=== PATIENT | female | born 1970 | race Caucasian/White ===

== ENCOUNTER → 2016-11-18 | Outpatient (CLI) | payer BC ==
[~2016-11-18] MED LIST: ACETAMINOPHEN325 MG PO; ACETAMINOPHEN650 M1 PO; ADVIL200 M1; BYSTOLIC5 MG PO; HYDROCODON-ACE1 EAC7 PO; KEFLEX500 MG PO; PHENERGAN25 M1 DOB; ZESTORETIC 20-1 EAC1 PO
--- NOTE | ~2016-11-18 | EKG ---
PATIENT: KAYKAY ESTEVES UNIT #: [id number] Ventricular Rate: 67 BPM Atrial Rate: 67 BPM P-R Interval: 180 ms QRS Duration: 86 ms Q-T Interval: 432 ms QTC Calculation(Bezet): 456 ms P [place]: 66 degrees Calculated R [place]: 55 degrees Calculated T [place]: 44 degrees Diagnosis Line: Normal sinus rhythm Diagnosis Line: Normal ECG Diagnosis Line: Diagnosis Line: Confirmed by NATHANAEL RAMON MD ([id number]) on 11/18/2016 Diagnosis Line: 10:20:33 PM INTERPRETING MD: YENNY MCKNIGHT
[2016-11-18 09:45] LABS: HEMATOCRIT 39.6 % (35.0-45.0); HEMOGLOBIN 13.4 gm/dL (12.0-16.0); MEAN CELL VOLUME 85.3 FL (83-96); MEAN CORPUSCULAR HEMOGLOBIN 28.8 PG (28-34); MEAN CORPUSCULAR HGB CONC 33.7 g/dL (30-36); MEAN PLATELET VOLUME 8.9 FL (6.5-11.5); RED BLOOD COUNT 4.64 X10e (3.90-5.30); RED CELL DISTRIBUTION WIDTH 14.7 % (11.0-15.5)
[2016-11-18 10:42] LABS: CALCIUM SERUM 8.7 mg/dL (8.4-10.2); CREATININE SERUM 1.1 mg/dL (0.6-1.4); GLOM FILT RATE Estimated 60.6 mL/min (>60); POTASSIUM 3.6 mmol/L (3.5-5.1)
== END | disposition home or self-care (01) ==
LOC: CAMB 07:30
PROVIDERS: Surgery
DX: Z01.818 Encounter for other preprocedural examination (principal)
CPT/HCPCS: 36415; 80048; 85027; 93005

== ENCOUNTER 2016-11-20 07:05 | Observation (INO) | payer BC ==
--- NOTE | ~2016-11-20 | CO ---
Unit #: [id number] #: [id number] Patient: KAYKAY ESTEVES [id number] [address] [place], [place] [address] [id number] I MR#: [id number] NAME: KAYKAY ESTEVES. ROOM: 461 Age: 45 Sex: F Admission Date: 11/20/2016 : 1970 Attending Physician: Ted Cunha M.D. 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 Ki 67 is 70%. Came for mastectomy. Some nonspecific lesions in the lung. MS. HISTORY OF PRESENT ILLNESS The patient is a 45-year-old female who has multiple sclerosis. At present, she is off treatment. About two months ago, she noticed a left breast mass, it gradually worsening. Finally, patient had a mammogram and ultrasound. It showed a 7 cm mass in the left breast. The patient had a core biopsy on 10/28/2016. It confirmed high-grade metaplastic adenocarcinoma, ERP, HER2/madi all three negative present. I talked to pathology, Dr. Walt Garcia at [facility]. The patient had a PET scan. It confirmed the left breast mass. It is about 7 cm. I spoke to the radiologist. There are some nonspecific lesions in the lung, it appears to be benign. The patient came to the hospital, had the mastectomy, tolerated, now wants to go home. Please note, the patient was not interested in neoadjuvant chemotherapy. REVIEW OF SYSTEMS CONSTITUTIONAL: No fever, no chills, no sweats, no weight loss. EYES: No visual symptoms. EARS, NOSE AND THROAT: There is no runny nose or sore throat or difficulty hearing. CARDIOVASCULAR: No chest pain. No shortness of breath. No palpitations. No orthopnea. No PND. RESPIRATORY: No cough. No wheezing. No hemoptysis. GASTROINTESTINAL: No nausea, vomiting, diarrhea, constipation, hematochezia or melena. GENITOURINARY: No urinary frequency, hesitancy or urgency. No blood in the urine. MUSCULOSKELETAL: No muscle or joint pain. NEUROLOGIC: No headache. No numbness or tingling. No weakness. No seizure. PSYCHIATRIC: No anxiety, depression or mood disturbance. ENDOCRINE: No excessive urination or thirst. DERMATOLOGIC: No rash or change in the skin. Unit #: [id number] #: [id number] Patient: KAYKAY ESTEVES ALLERGIC/IMMUNOLOGIC: No symptoms. HEMATOLOGIC/LYMPHATIC: Denies any symptoms. PAST MEDICAL HISTORY 1. Newly diagnosed breast cancer. 2. Multiple sclerosis. 3. Hypertension. PAST SURGICAL HISTORY 1. Ablation for SVT. 2. Now left breast mastectomy. ALLERGIES No known drug allergies. SOCIAL HISTORY Smoked one pack per day for 5 years, quit many years ago. Used to work in a [employer]. FAMILY HISTORY Negative for cancer. PHYSICAL EXAMINATION GENERAL: Patient is comfortable. ECOG is 0. The patient is pleasant. VITAL SIGNS: Afebrile. O2 saturation 98% on room air. Pulse 56, blood pressure 121/50, respirations 16. O2 saturation again 100%. HEENT: Moist mucosa. Pupils equally reactive to light. Extraocular muscles intact. Sclerae anicteric. No obvious bleeding from nasal mucosa or oral mucosa. Scalp normal. Hearing normal. NECK: No JVD. No lymphadenopathy. LYMPHATIC/HEMATOLOGIC: There is no palpable adenopathy in the neck, axilla or inguinal area. CARDIOVASCULAR: S1, S2. Regular rate and rhythm. No S3 or S4. RESPIRATORY: Chest symmetrical, normal. Clear to auscultation bilaterally. No wheezes, no rales, no rhonchi. No dullness to percussion. ABDOMEN/GASTROINTESTINAL: Abdomen is soft, nontender, nondistended. No hepatosplenomegaly. EXTREMITIES: There is no clubbing, no cyanosis, no edema. No varicose veins. NEUROLOGICAL: Patient is alert, awake and oriented x3. Cranial nerves II-XII are intact. Sensory grossly intact. Motor is 4/5 in all four extremities. Gait is normal. Station is normal. Language is normal. Memory is normal. DTRs +2 in all four extremities. MUSCULOSKELETAL: No joint swelling. No bony tenderness. No muscle tenderness. SKIN: No petechiae, no rash, no ecchymosis. PSYCHIATRIC: No anxiety. No delusions or hallucinations. There is no agitation. Eye contact is normal. Affect is appropriate. There is no flight of ideas. DIAGNOSTIC STUDIES LABORATORY: Creatinine 1.2, LFTs normal. WBC 11.2, hemoglobin 12.0, platelets 346. 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 The mass is measuring about 7 cm. PET scan confirmed the mass and the lesion in the lung are nonspecific. Unit #: [id number] #: [id number] Patient: KAYKAY ESTEVES DISCUSSION Extensive discussion with new patient. Patient, , and daughter they refused neoadjuvant chemotherapy. Patient has a mastectomy that she tolerated. PLAN I will follow the patient as an outpatient. She needs adjuvant chemotherapy. We will discuss the pathology report with our pathologist. She also needs genetic counseling and testing. We will also have to monitor her nonspecific lung nodule. Dictated by... Tien Kirkpatrick TD: 11/21/2016 18:26 JOB #: [id number] CONSULTATION REPORT Page 1 of 1 X Lashawn Gutierres MD X CONSULTATION REPORT
--- NOTE | ~2016-11-20 | NM79 ---
[facility] A Service [facility] RADIOLOGY TEXT RESULTS PATIENT: KAYKAY ESTEVES LOCATION: [place] [address] : [birth year] UNIT #: [id number] AGE: [address]: Ted Cunha MD SEX: F ORDER DR: [id number] [address] [place], [place] [address] [id number] O MR#: [id number] Acc #: [id number] NAME: KAYKAY ESTEVES : 1970 SEX: F STUDY DATE/TIME: 11/20/2016 8:15 UNIT: CS ROOM: STUDY DESCRIPTION: NM [place] Node Inj Attending Physician: Ted Cunha M.D. Ordering Physician: Ted Cunha M.D. Primary Care Physician: Primary Care Physician No MEDICAL IMAGING REPORT This report is preliminary unless electronic signature is present EXAM Left breast sentinel node injection 11/20/2016 INDICATION 45-year-old female with biopsy-proven malignancy in the upper outer quadrant left breast. Scheduled for mastectomy and sentinel node dissection. FINDINGS The patient's prior imaging studies were reviewed. She was deemed adequate candidate for the procedure. History and physical in the patient's chart was reviewed. Procedure and risks were explained to the patient. These included but not limited to bleeding, infection, and damage to adjacent structures. The patient gave consent to proceed. Prior to the procedure, a "time-out" protocol was also followed to confirm patient identity and procedure details. The nipple areolar complex in the left breast was prepped with an alcohol pad x3. Thereafter, using a periareolar approach, 3 separate injections were performed from the 12 o'clock to the 3 o'clock positions with a total injection of 585 McCi Tc99m filtered sulfur colloid. There were no immediate post procedure complications. The patient tolerated the procedure well. IMPRESSION Successful sentinel node injection on the left. No immediate post procedure complications. Dictated by... Reggie Slater M.D. [facility] A Service [facility] RADIOLOGY TEXT RESULTS PATIENT: KAYKAY ESTEVES LOCATION: [place] [address] : [birth year] UNIT #: [id number] AGE: [address]: Ted Cunha MD SEX: F ORDER DR: THIS IS AN ELECTRONICALLY VERIFIED REPORT Reggie Slater M.D. at 11/20/2016 5:11 PM Zohaib TD: 11/20/2016 09:35 JOB #: [id number] MEDICAL IMAGING REPORT Page 1 of 1 COPY
--- NOTE | ~2016-11-20 | OR ---
Unit #: [id number] #: [id number] Patient: KAYKAY ESTEVES [id number] [address] [address] [id number] I MR#: [id number] NAME: KAYKAY ESTEVES ROOM: 461 Date of Procedure: 11/20/2016 Admission Date: 11/20/2016 Surgeon: Ted Cunha M.D. : 1970 Attending Physician: Ted Cunha M.D. OPERATIVE REPORT PREOPERATIVE DIAGNOSIS Carcinoma, left breast upper outer quadrant. POSTOPERATIVE DIAGNOSIS Carcinoma, left breast upper outer quadrant. PROCEDURES PERFORMED 1. Left mastectomy. 2. Left axillary sentinel lymph node biopsy. PILOT TEACHER Kinza Vilchis, certified wellness program coordinator. ANESTHESIA General LMA anesthesia. FINDINGS The patient had a large nodes present in the left axilla; however, on frozen section, it was benign. Additional deep margin of pectoralis major muscle was taken. FLUIDS 1500 mL of crystalloid. ESTIMATED BLOOD LOSS Minimal. DRAINS Polo-Hernández 10 mm x2. TUBES None. SPECIMEN Sent to pathology. COMPLICATIONS None apparent. CONDITION The patient tolerated the procedure well. Unit #: [id number] #: [id number] Patient: KAYKAY ESTEVES INDICATIONS FOR PROCEDURE The patient is a 45-year-old female, who recently was found to have a 7 cm mass in the left breast. A PET scan revealed no other disease present. The patient was presented with several options, but wishes to proceed with left mastectomy at this time with left axillary sentinel lymph node biopsy. DESCRIPTION OF PROCEDURE After obtaining informed consent as well as receiving preoperative antibiotics, the patient who earlier in the day underwent injection beneath the left nipple-areolar complex with radioactive sulfur colloid. She was brought to the operating room and after adequate general LMA anesthesia was obtained, had her left breast, axilla, and chest prepped and draped in a sterile fashion. SCDs were in place. Prior to prep and drape, the patient had sterile injection of Lymphazurin blue beneath the left nipple-areolar complex and it was massaged for 5 minutes by the clock. At this point in time, using the Neoprobe as a guide, the area of increased uptake in the left axilla was marked. An elliptical incision was made around the nipple-areolar complex high enough and low enough to be above and below the area of the 7 cm mass. It was taken down through the skin with a knife and through the subdermal tissues and subcutaneous tissues with electrocautery. The superior flap was raised to the level of the pectoralis major muscle just below the level of the clavicle. An inferior flap was raised to the level of the lower chest wall. As dissection was taken across the upper flap towards the left axilla, the Neoprobe was used as a guide to go to be led down to an area of increased uptake. This revealed a large blue lymph node. This was sent to pathology for frozen section that was benign. After this node was removed, all radioactive counts in the axilla were essentially zero. The breast was removed from medial to lateral, but taking the pectoralis major muscle with good hemostasis using electrocautery, micro-clips, and with 3-0 suture ligatures. Because the 7 cm mass appeared to be close to the deep margin of the pectoralis major fascia, an 8 x 8 cm area of the additional deep margin was taken underneath the area of the mass. This was performed with electrocautery with good hemostasis and sent to pathology. The wound was copiously irrigated. Good hemostasis was confirmed in all areas of dissection. The two separate stab incisions were made inferiorly and a 10 flat Polo-Hernández drain was placed over the pectoralis major muscle as well as another one placed in the left axilla. Each was secured with a 2-0 silk sutures. A loop of 4-0 chromic was placed around the pectoralis major drain, so they would not migrate. This was loose. The subdermal tissues and subcutaneous tissues were reapproximated with a running 3-0 Vicryl suture. The skin was closed with a 4-0 Vicryl subcuticular stitch. Benzoin and Steri-Strips were applied over the wound in an occlusive manner followed by fluffs, a Kerlix wrap, and an Yuri wrap. Needle counts, sponge counts, and instrument counts were all correct as reported by the scrub nurse x2. The patient went from the operative room to the recovery room in stable condition. Dictated by... Tien Degroot/dougie TD: 11/21/2016 01:32 JOB #: [id number] CC: [facility] Unit #: [id number] #: [id number] Patient: KAYKAY ESTEVES M.D. Lydia C. Samples, M.D. OPERATIVE REPORT Page 1 of 1 X Ted Cunha MD X PROCEDURE OPERATIVE NOTE
[~2016-11-20 07:05] MED LIST changes: -ACETAMINOPHEN325 MG PO; -ACETAMINOPHEN650 M1 PO; -HYDROCODON-ACE1 EAC7 PO; -KEFLEX500 MG PO; -PHENERGAN25 M1 DOB
[2016-11-21 03:23] LABS: BASOPHIL# 0.1 X10e3 (0-0.3); BASOPHIL% 1.1 % (0-2.5); HEMATOCRIT 36.2 % (35.0-45.0); LYMPHOCYTE# 1.1 X10e3 (1.0-3.5); LYMPHOCYTE% 9.5 % (17.0-45.0); MEAN CORPUSCULAR HEMOGLOBIN 28.6 PG (28-34); MEAN CORPUSCULAR HGB CONC 33.2 g/dL (30-36); MEAN PLATELET VOLUME 9.1 FL (6.5-11.5); MONOCYTE# 0.5 X10e3 (0-1.0); MONOCYTE% 4.5 % (3.0-12.0); NEUTROPHIL# 9.5 X10e3 (1.5-7.1); NEUTROPHIL% 84.9 % (40-75); PLATELET COUNT 346 X10e3 (140-420); RED BLOOD COUNT 4.21 X10e (3.90-5.30); RED CELL DISTRIBUTION WIDTH 14.7 % (11.0-15.5); WHITE BLOOD COUNT 11.2 X10e3 (4.0-10.5)
[2016-11-21 03:25] LABS: DIFF IND NO
[2016-11-21 03:54] LABS: BUN/CREATININE RATIO 8.33; CALCIUM SERUM 8.2 mg/dL (8.4-10.2); CREATININE SERUM 1.2 mg/dL (0.6-1.4); GLOM FILT RATE Estimated 54.5 mL/min (>60); POTASSIUM 3.7 mmol/L (3.5-5.1)
[2016-11-21] MEDS ORDERED: PHENERGAN25 M1 DOB (10:22)
[2016-11-21] MEDS ORDERED: KEFLEX500 MG PO (10:22)
[2016-11-21] MEDS ORDERED: HYDROCODON-ACE1 EAC7 PO (10:24)
[2016-11-21] MEDS ORDERED: ACETAMINOPHEN325 MG PO (10:25)
[2016-11-21] MEDS ORDERED: ACETAMINOPHEN650 M1 PO (10:26)
== END 2016-11-21 11:35 | disposition home or self-care (01) | DRG 599 ==
LOC: CSUR 07:05 → CPACUOF 12:00 → C4C 14:47
PROVIDERS: Surgery
DX: C50.412 Malignant neoplasm of upper-outer quadrant of left female breast (principal); Z17.1 Estrogen receptor negative status [ER-]; I10 Essential (primary) hypertension; G35 Multiple sclerosis; Z87.891 Personal history of nicotine dependence; E66.9 Obesity, unspecified
CPT/HCPCS: 80048; 82947; 84703; 85025; 88305; 88307; 88312; 88331; 96374; 96376; A9541; G0378; J0131; J0690; J1100; J1170; J2250; J2405; J3010; Q9968

== ENCOUNTER → 2016-12-10 | Outpatient (CLI) | payer BC ==
[~2016-12-10] MED LIST changes: +ACETAMINOPHEN325 MG PO; +ACETAMINOPHEN650 M1 PO; +HYDROCODON-ACE1 EAC7 PO; +KEFLEX500 MG PO; +PHENERGAN25 M1 DOB
== END | disposition home or self-care (01) ==
LOC: CECH 09:30
DX: C50.312 Malignant neoplasm of lower-inner quadrant of left female breast (principal)
CPT/HCPCS: 93306

== ENCOUNTER → 2016-12-11 | Outpatient (CLI) | payer BC ==
--- NOTE | ~2016-12-11 | XA91 ---
[facility] A Service of [facility] & [facility] RADIOLOGY TEXT RESULTS PATIENT: KAYKAY ESTEVES LOCATION: [facility] : [birth year] UNIT #: [id number] AGE: [address]: Lashawn Gutierres MD SEX: F ORDER DR: [id number] [facility] [address] [place], [place] [address] [id number] O MR#: [id number] Acc #: [id number] NAME: KAYKAY ESTEVES : 1970 SEX: F STUDY DATE/TIME: 12/11/2016 9:08 UNIT: CIVR ROOM: STUDY DESCRIPTION: XA CVC Tunneled W Port Attending Physician: Lashawn Gutierres M.D. Ordering Physician: Lashawn Gutierres M.D. Primary Care Physician: Milagros Nunez M.D. MEDICAL IMAGING REPORT This report is preliminary unless electronic signature is present EXAM Port-A-Cath insertion, 12/11/2016. CLINICAL HISTORY Breast cancer. Wxsxmf-P-Rosh insertion requested for chemotherapy administration. PROCEDURE Informed consent was obtained. Full standard sterile technique was utilized including sterile preparation, barrier draping, and sterile gowns and gloves, as well as caps and mask. Real-time sterile ultrasound guidance was used to guide venous access and confirm patency of the right internal jugular vein. Fentanyl and Versed were administered for IV conscious sedation with hemodynamic monitoring provided by the nursing staff throughout procedure. Total sedation time 45 minutes. The right internal jugular was accessed via standard Seldinger technique after local anesthesia and a peel-away sheath inserted. A pocket was then created over the right upper anterior chest, following local anesthesia using a combination of blunt and sharp dissection. The Port-A-Cath hub was inserted into the pocket and the catheter tunneled to the venotomy site. The catheter was then measured and cut to length and inserted via the peel-away sheath. The pocket was then closed with interrupted deep fascial 3-0 Vicryl suture and running subcuticular 4-0 Monocryl suture. The venotomy site was closed with a deep 3-0 fascial Vicryl suture. N-butyl cyanoacrylate glue was applied to both incisions. The catheter STS. [facility] A Service of [facility] & [facility] RADIOLOGY TEXT RESULTS PATIENT: KAYKAY ESTEVES LOCATION: [facility] : [birth year] UNIT #: [id number] AGE: [address]: Lashawn Gutierres MD SEX: F ORDER DR: was also accessed, blood return confirmed and then was flushed with saline and packed with heparin. Single fluoroscopic spot image was obtained and a single sonographic image was preserved. 0.4 minutes of fluoroscopy was utilized. IMPRESSION Successful ultrasound and fluoroscopically guided placement of a tunneled right IJ Mpeuyi-U-Ikmu catheter without complication. Dictated by... Yair Khan M.D. THIS IS AN ELECTRONICALLY VERIFIED REPORT Yair Khan M.D. at 12/15/2016 10:34 AM URSULA/radha TD: 12/12/2016 13:48 JOB #: [id number] MEDICAL IMAGING REPORT Page 1 of 1 COPY
[2016-12-11 08:18] LABS: BASOPHIL# 0.1 X10e3 (0-0.3); BASOPHIL% 0.7 % (0-2.5); EOSINOPHIL# 0.3 X10e3 (0-0.7); EOSINOPHIL% 2.2 % (0.0-7.0); HEMATOCRIT 38.9 % (35.0-45.0); LYMPHOCYTE% 15.7 % (17.0-45.0); MEAN CELL VOLUME 87.8 FL (83-96); MEAN CORPUSCULAR HEMOGLOBIN 29.3 PG (28-34); MEAN CORPUSCULAR HGB CONC 33.4 g/dL (30-36); MEAN PLATELET VOLUME 8.8 FL (6.5-11.5); MONOCYTE# 0.7 X10e3 (0-1.0); MONOCYTE% 5.6 % (3.0-12.0); NEUTROPHIL# 9.9 X10e3 (1.5-7.1); NEUTROPHIL% 75.8 % (40-75); PLATELET COUNT 392 X10e3 (140-420); RED BLOOD COUNT 4.43 X10e (3.90-5.30); RED CELL DISTRIBUTION WIDTH 15.3 % (11.0-15.5); WHITE BLOOD COUNT 13.1 X10e3 (4.0-10.5)
[2016-12-11 08:19] LABS: DIFF IND NO
[2016-12-11 08:29] LABS: INR 0.9; PROTHROMBIN TIME (PATIENT) 9.8 SECONDS (9.6-11.5)
== END | disposition home or self-care (01) ==
LOC: CIVR 07:33
PROVIDERS: Internal Medicine Hematology
PROC: 05HM33Z Insertion of Infusion Device into Right Internal Jugular Vein, Percutaneous Approach (ICD-10-PCS; principal; 2016-12-11)
DX: Z45.2 Encounter for adjustment and management of vascular access device (principal); C50.312 Malignant neoplasm of lower-inner quadrant of left female breast; Z88.8 Allergy status to other drugs, medicaments and biological substances
CPT/HCPCS: 76937; 77001; 85025; 85610; C1788; C1894; J0690; J1642; J2250; J3010

== ENCOUNTER → 2017-01-21 | Outpatient (CLI) | payer BC | END | disposition home or self-care (01) | LOC: CECH 09:38 | DX: C50.312 Malignant neoplasm of lower-inner quadrant of left female breast (principal); R94.39 Abnormal result of other cardiovascular function study; I10 Essential (primary) hypertension | CPT/HCPCS: 93306 ==

== ENCOUNTER → 2017-02-20 | Outpatient (CLI) | payer BC ==
--- NOTE | ~2017-02-20 | XA77 ---
[facility] A Service of [facility] & [facility] RADIOLOGY TEXT RESULTS PATIENT: KAYKAY ESTEVES LOCATION: [facility]IV[facility] : [birth year] UNIT #: [id number] AGE: [address]: Lashawn Gutierres MD SEX: F ORDER DR: [id number] [facility] [address] [place], [place] [address] [id number] O MR#: [id number] Acc #: [id number] NAME: KAYKAY ESTEVES : 1970 SEX: F STUDY DATE/TIME: 02/20/2017 11:07 [facility] RO[facility]: STUDY DESCRIPTION: XA CVC Port Devive Check Attending Physician: Lashawn Gutierres M.D. Referring Physician: Lashawn Gutierres M.D. Ordering Physician: Lashawn Gutierres M.D. Primary Care Physician: Milagros Nunez M.D. MEDICAL IMAGING REPORT This report is preliminary unless electronic signature is present EXAM Port site check HISTORY Unable to withdraw blood from catheter. PROCEDURE After informed consent was obtained, the catheter was accessed in standard sterile fashion. Initial attempts to aspirate fluid were unsuccessful. After it was flushed with saline, contrast injection was performed which revealed no evidence of a fibrin sheath. After it was then re-flushed with saline, there was brisk blood return. Catheter was then flushed again with saline and packed with heparin. IMPRESSION 1. Injection reveals no evidence of a fibrin sheath but it is possible a tiny fibrin catheter was dislodged during contrast and/or saline injection. Following this, there was brisk and unobstructed blood return from the catheter; though initially, no blood return was received. 2. Again, catheter injection shows an intact catheter without fracture or pinhole or other defect and at the completion of the procedure, the catheter both returned blood and flushed easily and was packed with heparin. Dictated by... Yair Khan M.D. THIS IS AN ELECTRONICALLY VERIFIED REPORT Yair Khan M.D. at 02/25/2017 10:05 AM [facility] A Service of [facility] & [facility] RADIOLOGY TEXT RESULTS PATIENT: KAYKAY ESTEVES LOCATION: [facility] #: [id number] : [birth year] UNIT #: [id number] AGE: [address]: Lashawn Gutierres MD SEX: F ORDER DR: URSULA/eder TD: 02/20/2017 18:21 JOB #: [id number] MEDICAL IMAGING REPORT Page 1 of 1 COPY
== END | disposition home or self-care (01) ==
LOC: CIVR 10:53
DX: Z45.2 Encounter for adjustment and management of vascular access device (principal); C50.312 Malignant neoplasm of lower-inner quadrant of left female breast; Z90.12 Acquired absence of left breast and nipple; G35 Multiple sclerosis; R42 Dizziness and giddiness; Z79.899 Other long term (current) drug therapy
CPT/HCPCS: J1642; Q9967

== ENCOUNTER → 2017-03-05 | Outpatient (CLI) | payer BC | END | disposition home or self-care (01) | LOC: CECH 09:18 | DX: C50.312 Malignant neoplasm of lower-inner quadrant of left female breast (principal); I51.89 Other ill-defined heart diseases | CPT/HCPCS: 93307 ==